=== PATIENT | male | born 1990 | race Caucasian/White ===

== ENCOUNTER 2016-07-01 14:50 | Emergency (ER) | payer OTHER ==
[2016-07-01 15:21] VITALS: BP 148/74; PULSE 82; TEMP 97.8; BMI 22.8
[2016-07-01] MEDS ORDERED: IBUPROFEN 600 MG TABLET (FP) PO ONE (16:38)
[2016-07-01 16:59] LABS: URINE APPEARANCE CLEAR; URINE BILIRUBIN NEGATIVE (NEGATIVE); URINE BLOOD NEGATIVE (NEGATIVE); URINE COLOR STRAW; URINE GLUCOSE (UA) NEGATIVE (NEGATIVE); URINE KETONE NEGATIVE (NEGATIVE); URINE LEUK ESTERASE NEGATIVE (NEGATIVE); URINE NITRITE NEGATIVE (NEGATIVE); URINE PROTEIN NEGATIVE (NEGATIVE); URINE UROBILINOGEN NEGATIVE E.U./dl (0.2-1.0)
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
== END 2016-07-01 17:57 | disposition home or self-care (01) ==
LOC: JERFT 14:50
DX: M54.5 Low back pain (principal); W03.XXXA Other fall on same level due to collision with another person, initial encounter; Y93.89 Activity, other specified; Y92.89 Other specified places as the place of occurrence of the external cause
CPT/HCPCS: 72100-TC; 81003; 87070; 87430; 99281-25